=== PATIENT | female | born 1980 | race Caucasian/White ===

== ENCOUNTER 2018-12-10 11:32 | Emergency (ER) | payer BC ==
[2018-12-10 11:49] VITALS: BP 102/62
--- NOTE | 2018-12-10 12:39 | UC ---
Throat Pain/Nasal Shoaib HPI - HPI Summary HPI Summary: Patient presents to urgent care reporting 2-3 weeks of progressive frontal pressure sinus pressure nasal congestion. Patient has used [id number] Afrin taken hot showers Motrin Tylenol without improvement. Patient states for 7 days her secretions have been picking green. Patient with postnasal drip. Patient had a sore throat that resolved. Patient states her ears feel congested but no pain. Patient's children were sick but they have all improved. No nausea vomiting. Patient states she is not . Patient tried to see her PCP on Tuesday. They didn't have appointments available but she just feels she too much pressure to wait any longer medications reviewed - History of Current Complaint Chief Complaint: UCRespiratory Stated Complaint: SINUS ISSUE Time Seen by Provider: 12/10/18 12:37 Hx Obtained From: Patient Pain Intensity: 5 - Allergies/Home Medications Allergies/Adverse Reactions: Allergies Allergy/AdvReac Type Severity Reaction Status Date / Time Penicillins Allergy Hives Verified 12/10/18 11:49 PMH/Surg Hx/FS Hx/Imm Hx Previously Healthy: Yes - Surgical History Surgical History: Yes Surgery Procedure, Year, and Place: WISDOM TEETH - Family History Known Family History: Positive: Non-Contributory - Social History Occupation: Employed Full-time Lives: With Family Alcohol Use: Occasionally Substance Use Type: None Smoking Status (MU): Never Smoked Tobacco - Immunization History Most Recent Tetanus Shot: 10/2010 Review of Systems All Other Systems Reviewed And Are Negative: Yes ENT: Positive: Sore Throat, Nasal Discharge, Sinus Congestion, Sinus Pain/ Tenderness Respiratory: Positive: Negative Cardiovascular: Positive: Negative Is Patient Immunocompromised?: No Physical Exam - Summary Physical Exam Summary: Vital Signs Reviewed: Yes A+Ox3, no distress Eyes: Conjunctiva Clear, ARSH. EOM intact and full ENT: Hearing grossly normal left canal cerumen impaction - did not tolerate manual debridement right with scant fluid turbinates boggy an inflammed + thick PND. mmoist, uvula midline, no exudate, no erythema + TTP maxillary sinuses Neck: Positive: Supple Respiratory: Positive: No respiratory distress, No accessory muscle use + CTA throughout no w/r Cardiovascular: RRR nl s1, s2 no m/r CBT <2 sec abd soft + BS nt/nd no guarding, no distension Musculoskeletal Exam: GAMBOA x 4 without difficulty Strength Intact, ROM Intact Neurological: Positive: Alert, + sensation throughout Psychological: Positive: Normal Response To examiner Skin: Positive: no rash, no ecchymosis Triage Information Reviewed: Yes Vital Signs: Initial Vital Signs Temp 98.5 F 12/10/18 11:45 Pulse 58 12/10/18 11:45 Resp 18 12/10/18 11:45 BP 102/62 12/10/18 11:45 Pulse Ox 100 12/10/18 11:45 Re-Evaluation - Re-Evaluation First Eval Comment: cerumen impaction resolved with complete resolution Throat Pain/Nasal Course/Dx - Course Course Of Treatment: Patient presents to urgent care with 2 weeks of progressive sinus pressure and pain. Patient with thick green postnasal drip over the last week. Patient states she is feeling a lot of facial pressure. Patient has used Afrin and Tylenol. On exam vital signs are stable. Patient with significant congestion. Patient with left cerumen impaction. We'll ask nurse to irrigate. Patient exam consistent with sinusitis. Patient states she had chills but no documented fever. We'll start antibiotics. Secretion precaution. Recommended decongestant and steroid nasal spray recommend no additional Afrin. Patient states understanding agreement. - Differential Dx/Diagnosis Provider Diagnosis: Rhinosinusitis, Cerumen impaction Discharge - Sign-Out/Discharge Documenting (check all that apply): Patient Departure All imaging exams completed and their final reports reviewed: No Studies - Discharge Plan Condition: Stable Disposition: HOME Prescriptions: DOXYcycline CAP(*) [DOXYcycline 100MG CAP(*)] 100 mg PO BID #14 cap Fluticasone NASAL SPRAY 50MCG* [Flonase NASAL SPRAY 50MCG*] 1 spray BOTH NARES DAILY #1 btl Patient Education Materials: Cerumen Impaction (ED), Rhinosinusitis (ED) Referrals: Leo Cadena MD [Primary Care Provider] - Additional Instructions: - Stay well hydrated. Drink plenty of non-alcoholic, non-caffinated beverages. - Alternate ibuprofen (Advil, Motrin) 600mg and Tylenol every 3 hours for pain or fever. Take with food. Do NOT take for more than 4-5 days. - These infections are spread by secretions - do NOT share eating or drinking utensils - clean items you share with other people such as cell phones, computer mouse, TV remote, computer tablets,etc. Once you have been antibiotics for 2 days, change your toothbrush and your pillowcase. - take antibiotics as prescribed until gone - get plenty of restful sleep - okay to take over the counter decongestant (Claritin, Ilene, Zyrtec, Claritin-D, Ilene-D, zyrtec-D) - use nasal spray as prescribed - Do not use Afrin for more than 4-5 days in a row contact your doctor or return with questions or concerns - Billing Disposition and Condition Condition: STABLE Disposition: Home
== END 2018-12-10 13:10 | disposition home or self-care (01) ==
LOC: UCEAST 11:32
DX: J32.9 Chronic sinusitis, unspecified (principal); H61.22 Impacted cerumen, left ear; Z88.0 Allergy status to penicillin
CPT/HCPCS: 99213; G0463